=== PATIENT | female | born 1960 | race Caucasian/White ===

== ENCOUNTER 2018-03-22 11:54 | Emergency (ER) | payer MEDICAID ==
[~2018-03-22] VITALS: Ht 162.6 cm; Wt 90.0 kg
[2018-03-22] MEDS ORDERED: ASPI-986 PO (11:58)
[2018-03-22] MEDS ORDERED: METF-414 PO (11:58)
[2018-03-22] MEDS ORDERED: ALBUTEROL (0.083%) 2.5MG/3ML NEB HHN STA (12:15)
[2018-03-22] MEDS ORDERED: BENZONATATE 100MG CAPSULE PO ONE (12:15)
[2018-03-22] MEDS ORDERED: KETOROLAC 30MG/ML VIAL IV STA (12:15)
[2018-03-22 13:43] VITALS: BP 131/65
== END 2018-03-22 13:46 | disposition home or self-care (01) ==
LOC: ER 12:42
DX: J20.8 Acute bronchitis due to other specified organisms (principal); E11.9 Type 2 diabetes mellitus without complications; E78.00 Pure hypercholesterolemia, unspecified; I10 Essential (primary) hypertension; I51.9 Heart disease, unspecified; F31.9 Bipolar disorder, unspecified; Z79.899 Other long term (current) drug therapy
CPT/HCPCS: 71045; 94640; 99283; J7611